=== PATIENT | female | born 1990 ===

== ENCOUNTER 2020-01-24 10:00 | Inpatient (IN) | payer BC ==
[2020-01-24] MEDS ORDERED: Citric Acid/Sodium Citrate Solution 30 ML Cup PO ONE (10:21)
[2020-01-24] MEDS ORDERED: Sodium Chloride 0.9% 10 ML SDV IV PRN (10:21)
[2020-01-24] MEDS ORDERED: ceFAZolin 2 GM in Premix Bag 1 BAG IV ONE (10:21)
[2020-01-24] MEDS ORDERED: Sodium Chloride 0.9% 2.5 ML Syringe FLUSH PRN ×2 (10:21→13:53)
[2020-01-24] MEDS ORDERED: Sodium Chloride 0.9% 10 ML Syringe FLUSH PRN ×2 (10:21→13:53)
--- NOTE | 2020-01-24 10:23 | PCM.PREANE ---
Preanesthetic Assessment - Anesthesia/Transfusion/Family Hx Anesthesia History: Prior Anesthesia Without Reaction Other Type of Anesthesia Reaction Comment: states is "sensitive to narcotics and anesthesia", severe N&V Family History of Anesthesia Reaction: No Transfusion History: No Prior Transfusion(s) Intubation History: Unknown - Review of Systems General: No Symptoms Pulmonary: No Symptoms Cardiovascular: No Symptoms Gastrointestinal: No Symptoms Neurological: No Symptoms Other: Reports: None - Physical Assessment Height: 5 ft 8 in Weight: 103.873 kg ASA Class: 2 Mental Status: Alert & Oriented x3 Airway Class: Mallampati = 2 Dentition: Reports: Normal Dentition, [place](s) (x6 upper front) Thyro-Mental Finger Breadths: 3 Mouth Opening Finger Breadths: 3 ROM/Head Extension: Full Lungs: Clear to Auscultation, Normal Respiratory Effort Cardiovascular: Regular Rate, Regular Rhythm - Allergies Allergies/Adverse Reactions: Allergies Allergy/AdvReac Type Severity Reaction Status Date / Time codeine Allergy Nausea and Verified 01/24/20 10:19 Vomiting doxycycline Allergy Nausea and Verified 01/24/20 10:19 Vomiting - Blood Blood Available: No - Anesthesia Plan Pre-Op Medication Ordered: None - Acknowledgements Anesthesia Type Planned: Spinal (general anesthesia back-up plan) Pt an Appropriate Candidate for the Planned Anesthesia: Yes Alternatives and Risks of Anesthesia Discussed w Pt/Guardian: Yes Pt/Guardian Understands and Agrees with Anesthesia Plan: Yes PreAnesthesia Questionnaire HEENT History: Reports: None Cardiovascular History: Reports: None Respiratory History: Reports: None Gastrointestinal History: Reports: None Genitourinary History: Reports: None TELEMARKETER History: Reports: , Spontaneous Musculoskeletal History: Reports: Fracture Other Musculoskeletal History: hx fx nose Neurological History: Reports: None Psychiatric History: Reports: None Endocrine/Metabolic History: Reports: None Hematologic History: Reports: None Immunologic History: Reports: None Oncologic (Cancer) History: Reports: None Dermatologic History: Reports: None - Past Surgical History Head Surgeries/Procedures: Reports: None HEENT Surgical History: Reports: Naso-Sinus Surgery, Other (See Below) Other HEENT Surgeries/Procedures: hx fx nose-surgery for deviated septum Cardiovascular Surgical History: Reports: None Respiratory Surgical History: Reports: None GI Surgical History: Reports: None Female Surgical History: Reports: Section, D&C, Other (See Below) Other Female Surgeries/Procedures: ureteral dilation as a child Endocrine Surgical History: Reports: None Neurological Surgical History: Reports: None Musculoskeletal Surgical History: Reports: Arthroscopic Knee, Other (See Below) Other Musculoskeletal Surgeries/Procedures:: rt knee ACL reconstruction x2, molly calf fasciotomy Oncologic Surgical History: Reports: None Dermatological Surgical History: Reports: None - SUBSTANCE USE Smoking Status *Q: Never Smoker Recreational Drug Use History: No - HOME MEDS Home Medications: Home Meds Cetirizine [ZyrTEC] 1 tab PO DAILY 01/20/20 [History] Pnv No.95/Ferrous Fum/Folic AC [ Vitamin Tablet] 1 tab PO DAILY 01/20/20 [History]
[2020-01-24] MEDS ORDERED: Oxytocin/0.9 % Sodium Chloride 30 UNIT/500 ML BAG IV SCH (10:30)
[2020-01-24] MEDS: Lactated Ringers 1,000 ML IV SCH ×4 (10:35→19:42)
[2020-01-24] MEDS ORDERED: Morphine PF 10 MG/10 ML SDV ONE (11:54)
[2020-01-24] MEDS ORDERED: Oxytocin 10 Units/1 ML SDV ONE (11:56)
[2020-01-24] MEDS ORDERED: Ondansetron 4 MG/2 ML SDV ONE (11:56)
[2020-01-24] MEDS ORDERED: Ketorolac 30 MG/ML SDV ONE (13:03)
[2020-01-24] MEDS ORDERED: ceFAZolin 1 GM Vial ONE (13:03)
[2020-01-24] MEDS ORDERED: diphenhydrAMINE 50 MG/ML SDV ONE (13:41)
[2020-01-24] MEDS ORDERED: Lanolin 100% Cream 7 GM Tube TOP PRN (13:53)
[2020-01-24] MEDS ORDERED: Acetaminophen/oxyCODONE 325-5 MG Tab PO PRN (13:53)
[2020-01-24] MEDS ORDERED: Methylergonovine 0.2 MG/1 ML Amp IM PRN (13:53)
[2020-01-24] MEDS ORDERED: diphenhydrAMINE 50 MG/ML SDV IVPUSH PRN ×2 (13:53→15:13)
[2020-01-24] MEDS ORDERED: Misoprostol 200 MCG Tab RECTAL PRN (13:53)
[2020-01-24] MEDS ORDERED: Bisacodyl 10 MG Supp RECTAL PRN (13:53)
[2020-01-24] MEDS ORDERED: Ondansetron 4 MG/2 ML SDV IVPUSH PRN ×2 (13:53→15:13)
[2020-01-24] MEDS ORDERED: Oxytocin 10 Units/1 ML SDV IM PRN (13:53)
[2020-01-24] MEDS ORDERED: Tranexamic Acid 1,000 MG in Sodium Chloride 0.9% 100 ML IV PRN (13:53)
--- NOTE | 2020-01-24 14:01 | PCM.OPNOTE ---
- General Post-Op/Procedure Note Date of Surgery/Procedure: 01/24/20 Operative Procedure(s): Repeat low transverse section Findings: Viable female infant, weight 3760 grams, 8 and 9 at 1 and 5 minutes respectively. Pre Op Diagnosis: [place] intrauterine at 39 weeks 1 day EGA, previous low transverse section Post-Op Diagnosis: Same Anesthesia Technique: Spinal Primary Surgeon: Vivek Basurto Preschool Disability Teacher: Shyla Moreno (MS4) EBL in mLs: 600 Complications: None known Condition: Stable
--- NOTE | 2020-01-24 15:12 | PCM.POSTAN ---
POST ANESTHESIA ASSESSMENT - MENTAL STATUS Mental Status: Alert, Oriented - RESPIRATORY Respiratory Status: Respiratory Rate WNL, Airway Patent, O2 Saturation Stable - CARDIOVASCULAR CV Status: Pulse Rate WNL, Blood Pressure Stable - GASTROINTESTINAL GI Status: No Symptoms - PAIN Pain Score: 0 - POST OP HYDRATION Hydration Status: Adequate & Stable - OBSERVATIONS Free Text/Narrative:: Patient complaint of itching which was relieved some with Benadryl. Patient at acceptable level now. Denies any other concerns. No anesthesia complications noted.
[2020-01-24] MEDS ORDERED: Nalbuphine 10 MG/1 ML Vial IVPUSH PRN (15:13)
[2020-01-24] MEDS ORDERED: fentaNYL 100 MCG/2 ML SDV IVPUSH PRN (15:13)
[2020-01-24] MEDS ORDERED: Naloxone 0.4 MG/ML Syringe IVPUSH PRN (15:13)
[2020-01-24] MEDS ORDERED: Promethazine 25 MG/ML SDV IM ONE (16:35)
[2020-01-24] MEDS ORDERED: Scopolamine 1.5 MG Transdermal Patch TRDERM PRN (16:51)
[2020-01-24] MEDS ORDERED: Scopolamine 1.5 MG Transdermal Patch TOP ONE (16:58)
--- NOTE | 2020-01-24 16:58 | PCM.SN.2 ---
- Free Text/Narrative Note: 1633: Called by BLANCA Mejía in OB. Patient is having severe nausea and vomiting. Zofran was given and has not helped. Ordered Phenergan 12.5 mg IM now and may repeat x1 in 20 minutes if not resolved. Additionally, patient has had a scopolamine patch before which she states has helped with nausea & motion sickness. Ordered scopolamine patch to be placed behind ear now. Patient in bed and miserably nauseated. Will follow up later this evening. VSS.
[2020-01-24] MEDS ORDERED: Scopolamine 1.5 MG Transdermal Patch TRDERM ONE (17:15)
[2020-01-24] MEDS: Ketorolac 30 MG/ML SDV IVPUSH SCH (19:38)
[2020-01-24] MEDS: Docusate Sodium 100 MG Cap PO SCH (20:51)
[2020-01-25] MEDS: Ketorolac 30 MG/ML SDV IVPUSH SCH ×3 (01:31→13:34)
--- NOTE | 2020-01-25 08:42 | PCM.PNPP ---
<Meredith Poole E - Last Filed: 01/25/20 08:36> - General Info Date of Service: 01/25/20 Admission Dx/Problem (Free Text): Elective repeat low transverse section at 39/1 weeks gestation. Functional Status: Reports: Pain Controlled - Review of Systems General: Reports: No Symptoms Genitourinary: Reports: No Symptoms Skin: Reports: No Symptoms Neurological: Reports: No Symptoms Psychiatric: Reports: No Symptoms - General Info Date of Service: 01/25/20 - Patient Data Vital Signs - Most Recent: Last Vital Signs Temp 36.8 C 01/25/20 04:00 Pulse 90 01/25/20 06:00 Resp 15 01/25/20 08:28 BP 144/81 H 01/25/20 07:35 Pulse Ox 97 01/25/20 08:28 Weight - Most Recent: 103.873 kg I&O - Last 24 Hours: Intake & Output 01/24/20 01/25/20 01/25/20 22:59 06:59 14:59 Intake Total 600 Output Total 375 650 400 Balance 225 -650 -400 Lab Results - Last 24 Hours: Laboratory Results - last 24 hr 01/24/20 01/24/20 01/24/20 Range/Units 10:35 10:35 14:08 WBC 11.53 H (4.0-11.0) K/uL RBC 4.16 L (4.30-5.90) M/uL Hgb 11.9 L (12.0-16.0) g/dL Hct 36.0 (36.0-46.0) % MCV 86.5 (80.0-98.0) fL MCH 28.6 (27.0-32.0) pg MCHC 33.1 (31.0-37.0) g/dL RDW Std Deviation 43.4 (28.0-62.0) fl RDW Coeff of Talha 14 (11.0-15.0) % Plt Count 161 (150-400) K/uL MPV 12.10 H (7.40-12.00) fL Nucleated RBC % 0.0 /100WBC Nucleated RBCs # 0 K/uL Blood Type O NEGATIVE Antibody Screen NEGATIVE Screen NEGATIVE (NEGATIVE) RhIG Candidate? YES Rhogam Indicated YES, BABY RH POS H 10/10/20 Range/Units 05:25 WBC (4.0-11.0) K/uL RBC (4.30-5.90) M/uL Hgb 11.6 L (12.0-16.0) g/dL Hct 35.7 L (36.0-46.0) % MCV (80.0-98.0) fL MCH (27.0-32.0) pg MCHC (31.0-37.0) g/dL RDW Std Deviation (28.0-62.0) fl RDW Coeff of Talha (11.0-15.0) % Plt Count (150-400) K/uL MPV (7.40-12.00) fL Nucleated RBC % /100WBC Nucleated RBCs # K/uL Blood Type Antibody Screen Screen (NEGATIVE) RhIG Candidate? Rhogam Indicated Med Orders - Current: Current Medications Bisacodyl (Dulcolax) 10 mg RECTAL ONETIME PRN PRN Reason: Constipation Diphenhydramine HCl (Benadryl) 25 mg IVPUSH Q6H PRN PRN Reason: Itching or Nausea Diphenhydramine HCl (Benadryl) 25 mg IVPUSH Q4H PRN PRN Reason: Itching Stop: 01/25/20 15:15 Docusate Sodium (Colace) 100 mg PO BID [facility] Last Admin: 01/24/20 20:51 Dose: 100 mg Documented by: Emollient Ointment (Lansinoh Hpa) 0 gm TOP ASDIRECTED PRN PRN Reason: Sore Nipples Fentanyl (Sublimaze) 50 mcg IVPUSH Q1H PRN PRN Reason: Pain (severe 7-10) Oxytocin/Sodium Chloride (Oxytocin 30 Unit/500 Ml-Ns) 30 unit in 500 mls @ 250 mls/hr IV TITRATE [facility] Lactated Ringer's (Ringers, Lactated) 1,000 mls @ 500 mls/hr IV BOLUS [facility] Last Admin: 01/24/20 11:16 Dose: 999 mls/hr Documented by: Lactated Ringer's (Ringers, Lactated) 1,000 mls @ 125 mls/hr IV ASDIRECTED [facility] Last Admin: 01/24/20 19:42 Dose: 125 mls/hr Documented by: Tranexamic Acid 1,000 mg/ (Sodium Chloride) 110 mls @ 660 mls/hr IV ONETIME PRN PRN Reason: Bleeding Ibuprofen (Motrin) 800 mg PO Q8H PRN PRN Reason: mild pain or fever Ketorolac Tromethamine (Toradol) 30 mg IVPUSH Q6H SHONNA Stop: 01/25/20 14:01 Last Admin: 01/25/20 07:23 Dose: 30 mg Documented by: Methylergonovine Maleate (Methergine) 0.2 mg IM ONETIME PRN PRN Reason: Excessive Vaginal Bleeding Misoprostol (Cytotec) 1,000 mcg RECTAL ONETIME PRN PRN Reason: excessive bleeding Nalbuphine HCl (Nubain) 5 mg IVPUSH ASDIRECTED PRN PRN Reason: Itching Naloxone HCl (Narcan) 0.1 mg IVPUSH ONETIME PRN PRN Reason: Respiratory Depression Stop: 01/25/20 15:15 Ondansetron HCl (Zofran) 4 mg IVPUSH Q4H PRN PRN Reason: Nausea/Vomiting Last Admin: 01/24/20 15:53 Dose: 4 mg Documented by: Ondansetron HCl (Zofran) 4 mg IVPUSH Q6H PRN PRN Reason: Nausea Oxycodone/Acetaminophen (Percocet 325-5 Mg) 1 tab PO Q4H PRN PRN Reason: Pain (moderate 4-6) Oxycodone/Acetaminophen (Percocet 325-5 Mg) 2 tab PO Q4H PRN PRN Reason: Pain (moderate 4-6) Oxytocin (Pitocin) 10 unit IM ASDIRECTED PRN PRN Reason: Excessive Vaginal Bleeding Sodium Chloride (Saline Flush) 10 ml FLUSH ASDIRECTED PRN PRN Reason: Keep Vein Open Sodium Chloride (Saline Flush) 2.5 ml FLUSH ASDIRECTED PRN PRN Reason: Keep Vein Open Sodium Chloride (Normal Saline) 10 ml IV ASDIRECTED PRN PRN Reason: IV Use Sodium Chloride (Saline Flush) 10 ml FLUSH ASDIRECTED PRN PRN Reason: Keep Vein Open Sodium Chloride (Saline Flush) 2.5 ml FLUSH ASDIRECTED PRN PRN Reason: Keep Vein Open Discontinued Medications Cefazolin Sodium (Ancef) Confirm Administered Dose 1 gm .ROUTE .STK-MED ONE Stop: 01/24/20 13:04 Citric Acid/Sodium Citrate (Bicitra Solution) 30 ml PO ONETIME ONE Stop: 01/24/20 10:22 Diphenhydramine HCl (Benadryl) Confirm Administered Dose 50 mg .ROUTE .STK-MED ONE Stop: 01/24/20 13:42 Cefazolin Sodium/Dextrose 2 gm (/ Premix) 50 mls @ 100 mls/hr IV ONETIME ONE Stop: 01/24/20 10:50 Cefazolin Sodium/Dextrose (Ancef) Confirm Administered Dose 50 mls @ as directed .ROUTE .STK-MED ONE Stop: 01/24/20 12:05 Ketorolac Tromethamine (Toradol) Confirm Administered Dose 30 mg .ROUTE .STK-MED ONE Stop: 01/24/20 13:04 Morphine Sulfate (Duramorph Pf) Confirm Administered Dose 10 mg .ROUTE .STK-MED ONE Stop: 01/24/20 11:55 Ondansetron HCl (Zofran) Confirm Administered Dose 4 mg .ROUTE .STK-MED ONE Stop: 01/24/20 11:57 Oxytocin (Pitocin) Confirm Administered Dose 30 unit .ROUTE .STK-MED ONE Stop: 01/24/20 11:57 Promethazine HCl (Phenergan) 25 mg IM ONETIME ONE Stop: 01/24/20 16:36 Last Admin: 01/24/20 16:46 Dose: 12.5 mg Documented by: Scopolamine (Transderm-Scop) 1.5 mg TRDERM Q72H ONE Stop: 01/24/20 17:16 Last Admin: 01/24/20 17:12 Dose: 1.5 mg Documented by: - Infant Interaction Disposition, : [place] in Room with Family Interaction: Holding Infant Infant Feeding: Bottle Fed Support Person: Significant Other - Recovery Exam Fundal Tone: Firm Fundal Level: 1 Fingerbreadths Below Umbilicus Fundal Placement: Midline Lochia Amount: Moderate Lochia Color: Rubra/Red Episiotomy/Laceration: Approximated Bladder Status: Voiding Urinary Elimination: Voided (Catheter removed and voided without difficulty.) - Exam General: Alert, No Acute Distress Lungs: Clear to Auscultation, Normal Respiratory Effort Cardiovascular: Regular Rate, Regular Rhythm GI/Abdominal Exam: Soft, Non-Tender. No: Guarding, Rigid Extremities: Normal Inspection, Normal Range of Motion, No Pedal Edema Skin: Warm, Dry Wound/Incisions: Dressing Dry and Intact Psy/Mental Status: Alert - Problem List Review Problem List Initiated/Reviewed/Updated: Yes - Assessment Assessment:: 29 y/o now day one after elective repeat low transverse at 39/1 weeks. - Plan Plan:: 1. Routine post- -O- blood, R immune, GBS negative 2. Rhogam today 3. Anticipate discharge tomorrow pending mother and status. <Sirisha Parkinson - Last Filed: 01/25/20 09:18> - Patient Data Vital Signs - Most Recent: Last Vital Signs Temp 37.1 C 01/25/20 08:53 Pulse 90 01/25/20 06:00 Resp 15 01/25/20 09:02 BP 144/81 H 01/25/20 07:35 Pulse Ox 96 01/25/20 09:02 I&O - Last 24 Hours: Intake & Output 01/24/20 01/25/20 01/25/20 22:59 06:59 14:59 Intake Total 600 Output Total 375 650 400 Balance 225 -650 -400 Lab Results - Last 24 Hours: Laboratory Results - last 24 hr 01/24/20 01/24/20 01/24/20 Range/Units 10:35 10:35 14:08 WBC 11.53 H (4.0-11.0) K/uL RBC 4.16 L (4.30-5.90) M/uL Hgb 11.9 L (12.0-16.0) g/dL Hct 36.0 (36.0-46.0) % MCV 86.5 (80.0-98.0) fL MCH 28.6 (27.0-32.0) pg MCHC 33.1 (31.0-37.0) g/dL RDW Std Deviation 43.4 (28.0-62.0) fl RDW Coeff of Talha 14 (11.0-15.0) % Plt Count 161 (150-400) K/uL MPV 12.10 H (7.40-12.00) fL Nucleated RBC % 0.0 /100WBC Nucleated RBCs # 0 K/uL Blood Type O NEGATIVE Antibody Screen NEGATIVE Screen NEGATIVE (NEGATIVE) RhIG Candidate? YES Rhogam Indicated YES, BABY RH POS H 01/25/20 Range/Units 05:25 WBC (4.0-11.0) K/uL RBC (4.30-5.90) M/uL Hgb 11.6 L (12.0-16.0) g/dL Hct 35.7 L (36.0-46.0) % MCV (80.0-98.0) fL MCH (27.0-32.0) pg MCHC (31.0-37.0) g/dL RDW Std Deviation (28.0-62.0) fl RDW Coeff of Talha (11.0-15.0) % Plt Count (150-400) K/uL MPV (7.40-12.00) fL Nucleated RBC % /100WBC Nucleated RBCs # K/uL Blood Type Antibody Screen Screen (NEGATIVE) RhIG Candidate? Rhogam Indicated Med Orders - Current: Current Medications Bisacodyl (Dulcolax) 10 mg RECTAL ONETIME PRN PRN Reason: Constipation Diphenhydramine HCl (Benadryl) 25 mg IVPUSH Q6H PRN PRN Reason: Itching or Nausea Diphenhydramine HCl (Benadryl) 25 mg IVPUSH Q4H PRN PRN Reason: Itching Stop: 01/25/20 15:15 Docusate Sodium (Colace) 100 mg PO BID [facility] Last Admin: 01/25/20 08:49 Dose: 100 mg Documented by: Emollient Ointment (Lansinoh Hpa) 0 gm TOP ASDIRECTED PRN PRN Reason: Sore Nipples Fentanyl (Sublimaze) 50 mcg IVPUSH Q1H PRN PRN Reason: Pain (severe 7-10) Oxytocin/Sodium Chloride (Oxytocin 30 Unit/500 Ml-Ns) 30 unit in 500 mls @ 250 mls/hr IV TITRATE [facility] Lactated Ringer's (Ringers, Lactated) 1,000 mls @ 500 mls/hr IV BOLUS [facility] Last Admin: 01/24/20 11:16 Dose: 999 mls/hr Documented by: Lactated Ringer's (Ringers, Lactated) 1,000 mls @ 125 mls/hr IV ASDIRECTED [facility] Last Admin: 10/09/20 19:42 Dose: 125 mls/hr Documented by: Tranexamic Acid 1,000 mg/ (Sodium Chloride) 110 mls @ 660 mls/hr IV ONETIME PRN PRN Reason: Bleeding Ibuprofen (Motrin) 800 mg PO Q8H PRN PRN Reason: mild pain or fever Ketorolac Tromethamine (Toradol) 30 mg IVPUSH Q6H SHONNA Stop: 01/25/20 14:01 Last Admin: 01/25/20 07:23 Dose: 30 mg Documented by: Methylergonovine Maleate (Methergine) 0.2 mg IM ONETIME PRN PRN Reason: Excessive Vaginal Bleeding Misoprostol (Cytotec) 1,000 mcg RECTAL ONETIME PRN PRN Reason: excessive bleeding Nalbuphine HCl (Nubain) 5 mg IVPUSH ASDIRECTED PRN PRN Reason: Itching Naloxone HCl (Narcan) 0.1 mg IVPUSH ONETIME PRN PRN Reason: Respiratory Depression Stop: 01/25/20 15:15 Ondansetron HCl (Zofran) 4 mg IVPUSH Q4H PRN PRN Reason: Nausea/Vomiting Last Admin: 01/24/20 15:53 Dose: 4 mg Documented by: Ondansetron HCl (Zofran) 4 mg IVPUSH Q6H PRN PRN Reason: Nausea Oxycodone/Acetaminophen (Percocet 325-5 Mg) 1 tab PO Q4H PRN PRN Reason: Pain (moderate 4-6) Oxycodone/Acetaminophen (Percocet 325-5 Mg) 2 tab PO Q4H PRN PRN Reason: Pain (moderate 4-6) Oxytocin (Pitocin) 10 unit IM ASDIRECTED PRN PRN Reason: Excessive Vaginal Bleeding Sodium Chloride (Saline Flush) 10 ml FLUSH ASDIRECTED PRN PRN Reason: Keep Vein Open Sodium Chloride (Saline Flush) 2.5 ml FLUSH ASDIRECTED PRN PRN Reason: Keep Vein Open Sodium Chloride (Normal Saline) 10 ml IV ASDIRECTED PRN PRN Reason: IV Use Sodium Chloride (Saline Flush) 10 ml FLUSH ASDIRECTED PRN PRN Reason: Keep Vein Open Sodium Chloride (Saline Flush) 2.5 ml FLUSH ASDIRECTED PRN PRN Reason: Keep Vein Open Discontinued Medications Cefazolin Sodium (Ancef) Confirm Administered Dose 1 gm .ROUTE .STK-MED ONE Stop: 01/24/20 13:04 Citric Acid/Sodium Citrate (Bicitra Solution) 30 ml PO ONETIME ONE Stop: 01/24/20 10:22 Diphenhydramine HCl (Benadryl) Confirm Administered Dose 50 mg .ROUTE .STK-MED ONE Stop: 01/24/20 13:42 Cefazolin Sodium/Dextrose 2 gm (/ Premix) 50 mls @ 100 mls/hr IV ONETIME ONE Stop: 01/24/20 10:50 Cefazolin Sodium/Dextrose (Ancef) Confirm Administered Dose 50 mls @ as directed .ROUTE .STK-MED ONE Stop: 01/24/20 12:05 Ketorolac Tromethamine (Toradol) Confirm Administered Dose 30 mg .ROUTE .STK-MED ONE Stop: 01/24/20 13:04 Morphine Sulfate (Duramorph Pf) Confirm Administered Dose 10 mg .ROUTE .STK-MED ONE Stop: 01/24/20 11:55 Ondansetron HCl (Zofran) Confirm Administered Dose 4 mg .ROUTE .STK-MED ONE Stop: 01/24/20 11:57 Oxytocin (Pitocin) Confirm Administered Dose 30 unit .ROUTE .STK-MED ONE Stop: 01/24/20 11:57 Promethazine HCl (Phenergan) 25 mg IM ONETIME ONE Stop: 01/24/20 16:36 Last Admin: 01/24/20 16:46 Dose: 12.5 mg Documented by: Scopolamine (Transderm-Scop) 1.5 mg TRDERM Q72H ONE Stop: 01/24/20 17:16 Last Admin: 01/24/20 17:12 Dose: 1.5 mg Documented by: - Problem List Review Problem List Initiated/Reviewed/Updated: Yes - Assessment Assessment:: Patient was seen and examined by me and I agree with above.
[2020-01-25] MEDS: Docusate Sodium 100 MG Cap PO SCH ×2 (08:49→20:56)
--- NOTE | 2020-01-25 11:00 | PCM48HPAN ---
Post Anesthesia Note - EVALUATION WITHIN 48HRS OF ANESTHETIC Vital Signs in Normal Range: Yes Patient Participated in Evaluation: Yes Respiratory Function Stable: Yes Airway Patent: Yes Cardiovascular Function Stable: Yes Hydration Status Stable: Yes Pain Control Satisfactory: Yes Nausea and Vomiting Control Satisfactory: Yes Mental Status Recovered: Yes Vital Signs: Last Vital Signs Temp 37.1 C 01/25/20 08:53 Pulse 90 01/25/20 06:00 Resp 15 01/25/20 10:42 BP 144/81 H 01/25/20 07:35 Pulse Ox 96 01/25/20 10:42 - COMMENTS/OBSERVATIONS Free Text/Narrative:: Patient sitting in bed hold baby. Doing very well today. No nausea and vomiting and IM phenergan and scope patch application yesterday evening. She has been able to eat and drink and move around. No further anesthesia complications or concerns noted.
[2020-01-25] MEDS: Acetaminophen/oxyCODONE 325-5 MG Tab PO PRN ×2 (16:18→21:37)
[2020-01-25] MEDS: Ibuprofen 800 MG Tab PO PRN (19:36)
[2020-01-26] MEDS: Acetaminophen/oxyCODONE 325-5 MG Tab PO PRN ×3 (01:38→12:33)
[2020-01-26] MEDS: Ibuprofen 800 MG Tab PO PRN ×2 (03:59→12:33)
--- NOTE | 2020-01-26 08:52 | PCM.PNPP ---
<Meredith Poole E - Last Filed: 01/26/20 08:47> - General Info Date of Service: 01/26/20 Admission Dx/Problem (Free Text): Elective repeat low transverse section at 39/1 weeks gestation. Subjective Update: Patient is a 29 y/o female who is on day 2 from a repeat low transverse section. She had no overnight events and is doing well. She is eating and voiding well. She is bottle feeding. She has no questions or concerns at this time. Functional Status: Reports: Pain Controlled, Tolerating Diet, Ambulating, Urinating - Review of Systems General: Reports: No Symptoms Pulmonary: Denies: Shortness of Breath Skin: Reports: No Symptoms Neurological: Reports: No Symptoms - General Info Date of Service: 01/26/20 - Patient Data Vital Signs - Most Recent: Last Vital Signs Temp 36.7 C 01/26/20 07:27 Pulse 92 01/26/20 04:00 Resp 14 01/26/20 07:27 BP 131/82 01/26/20 07:27 Pulse Ox 96 01/26/20 07:27 Weight - Most Recent: 103.873 kg I&O - Last 24 Hours: Intake & Output 01/25/20 01/26/20 01/26/20 22:59 06:59 14:59 Intake Total 2 Balance 2 Lab Results - Last 24 Hours: Laboratory Results - last 24 hr 01/24/20 Range/Units 14:08 Screen NEGATIVE (NEGATIVE) RhIG Candidate? YES Rhogam Indicated YES, BABY RH POS H Med Orders - Current: Current Medications Bisacodyl (Dulcolax) 10 mg RECTAL ONETIME PRN PRN Reason: Constipation Diphenhydramine HCl (Benadryl) 25 mg IVPUSH Q6H PRN PRN Reason: Itching or Nausea Docusate Sodium (Colace) 100 mg PO BID [facility] Last Admin: 01/25/20 20:56 Dose: 100 mg Documented by: Emollient Ointment (Lansinoh Hpa) 0 gm TOP ASDIRECTED PRN PRN Reason: Sore Nipples Fentanyl (Sublimaze) 50 mcg IVPUSH Q1H PRN PRN Reason: Pain (severe 7-10) Oxytocin/Sodium Chloride (Oxytocin 30 Unit/500 Ml-Ns) 30 unit in 500 mls @ 250 mls/hr IV TITRATE [facility] Lactated Ringer's (Ringers, Lactated) 1,000 mls @ 500 mls/hr IV BOLUS [facility] Last Admin: 01/24/20 11:16 Dose: 999 mls/hr Documented by: Lactated Ringer's (Ringers, Lactated) 1,000 mls @ 125 mls/hr IV ASDIRECTED SHONNA Last Admin: 01/24/20 19:42 Dose: 125 mls/hr Documented by: Tranexamic Acid 1,000 mg/ (Sodium Chloride) 110 mls @ 660 mls/hr IV ONETIME PRN PRN Reason: Bleeding Ibuprofen (Motrin) 800 mg PO Q8H PRN PRN Reason: mild pain or fever Last Admin: 01/26/20 03:59 Dose: 800 mg Documented by: Methylergonovine Maleate (Methergine) 0.2 mg IM ONETIME PRN PRN Reason: Excessive Vaginal Bleeding Misoprostol (Cytotec) 1,000 mcg RECTAL ONETIME PRN PRN Reason: excessive bleeding Nalbuphine HCl (Nubain) 5 mg IVPUSH ASDIRECTED PRN PRN Reason: Itching Ondansetron HCl (Zofran) 4 mg IVPUSH Q4H PRN PRN Reason: Nausea/Vomiting Last Admin: 01/24/20 15:53 Dose: 4 mg Documented by: Ondansetron HCl (Zofran) 4 mg IVPUSH Q6H PRN PRN Reason: Nausea Oxycodone/Acetaminophen (Percocet 325-5 Mg) 1 tab PO Q4H PRN PRN Reason: Pain (moderate 4-6) Last Admin: 01/26/20 07:16 Dose: 1 tab Documented by: Oxycodone/Acetaminophen (Percocet 325-5 Mg) 2 tab PO Q4H PRN PRN Reason: Pain (moderate 4-6) Oxytocin (Pitocin) 10 unit IM ASDIRECTED PRN PRN Reason: Excessive Vaginal Bleeding Sodium Chloride (Saline Flush) 10 ml FLUSH ASDIRECTED PRN PRN Reason: Keep Vein Open Sodium Chloride (Saline Flush) 2.5 ml FLUSH ASDIRECTED PRN PRN Reason: Keep Vein Open Sodium Chloride (Normal Saline) 10 ml IV ASDIRECTED PRN PRN Reason: IV Use Sodium Chloride (Saline Flush) 10 ml FLUSH ASDIRECTED PRN PRN Reason: Keep Vein Open Sodium Chloride (Saline Flush) 2.5 ml FLUSH ASDIRECTED PRN PRN Reason: Keep Vein Open Discontinued Medications Cefazolin Sodium (Ancef) Confirm Administered Dose 1 gm .ROUTE .STK-MED ONE Stop: 01/24/20 13:04 Citric Acid/Sodium Citrate (Bicitra Solution) 30 ml PO ONETIME ONE Stop: 01/24/20 10:22 Diphenhydramine HCl (Benadryl) Confirm Administered Dose 50 mg .ROUTE .STK-MED ONE Stop: 01/24/20 13:42 Diphenhydramine HCl (Benadryl) 25 mg IVPUSH Q4H PRN PRN Reason: Itching Stop: 01/25/20 15:15 Cefazolin Sodium/Dextrose 2 gm (/ Premix) 50 mls @ 100 mls/hr IV ONETIME ONE Stop: 01/24/20 10:50 Cefazolin Sodium/Dextrose (Ancef) Confirm Administered Dose 50 mls @ as directed .ROUTE .STK-MED ONE Stop: 01/24/20 12:05 Ketorolac Tromethamine (Toradol) Confirm Administered Dose 30 mg .ROUTE .STK-MED ONE Stop: 01/24/20 13:04 Ketorolac Tromethamine (Toradol) 30 mg IVPUSH Q6H SHON[facility] Stop: 01/25/20 14:01 Last Admin: 01/25/20 13:34 Dose: 30 mg Documented by: Morphine Sulfate (Duramorph Pf) Confirm Administered Dose 10 mg .ROUTE .STK-MED ONE Stop: 01/24/20 11:55 Naloxone HCl (Narcan) 0.1 mg IVPUSH ONETIME PRN PRN Reason: Respiratory Depression Stop: 01/25/20 15:15 Ondansetron HCl (Zofran) Confirm Administered Dose 4 mg .ROUTE .STK-MED ONE Stop: 01/24/20 11:57 Oxytocin (Pitocin) Confirm Administered Dose 30 unit .ROUTE .STK-MED ONE Stop: 01/24/20 11:57 Promethazine HCl (Phenergan) 25 mg IM ONETIME ONE Stop: 01/24/20 16:36 Last Admin: 01/24/20 16:46 Dose: 12.5 mg Documented by: Scopolamine (Transderm-Scop) 1.5 mg TRDERM Q72H ONE Stop: 01/24/20 17:16 Last Admin: 01/24/20 17:12 Dose: 1.5 mg Documented by: - Infant Interaction Disposition, : in Room with Family Interaction: Holding Infant Feeding: Bottle Fed Support Person: Significant Other - Recovery Exam Fundal Tone: Firm Fundal Level: 2 Fingerbreadths Below Umbilicus Fundal Placement: Midline Lochia Amount: Scant Lochia Color: Rubra/Red Perineum Description: Intact, Minimal Bruising/Swelling Episiotomy/Laceration: Approximated Bladder Status: Voiding Urinary Elimination: Voided - Exam General: Alert, No Acute Distress Lungs: Clear to Auscultation, Normal Respiratory Effort Cardiovascular: Regular Rate, Regular Rhythm GI/Abdominal Exam: Soft, Non-Tender. No: Guarding, Rigid Extremities: Normal Inspection, Normal Range of Motion, Non-Tender, No Pedal Edema Skin: Warm, Dry Wound/Incisions: Healing Well, No Drainage. No: Erythema Neurological: No New Focal Deficit Psy/Mental Status: Alert, Normal Mood - Problem List Review Problem List Initiated/Reviewed/Updated: Yes - Assessment Assessment:: Patient is a 29 y/o now female on post- day two after an elective repeat low transverse section. - Plan Plan:: 1. Routine post- -O- blood, R immune, GBS negative 2. Rhogam given 3. Anticipate discharge today pending mother and status. <Sirisha Parkinson - Last Filed: 01/26/20 09:45> - Patient Data Vital Signs - Most Recent: Last Vital Signs Temp 36.7 C 01/26/20 07:27 Pulse 92 01/26/20 04:00 Resp 14 01/26/20 07:27 BP 131/82 01/26/20 07:27 Pulse Ox 96 01/26/20 07:27 I&O - Last 24 Hours: Intake & Output 01/25/20 01/26/20 01/26/20 22:59 06:59 14:59 Intake Total 2 Balance 2 Lab Results - Last 24 Hours: Laboratory Results - last 24 hr 01/24/20 Range/Units 14:08 Screen NEGATIVE (NEGATIVE) RhIG Candidate? YES Rhogam Indicated YES, BABY RH POS H Med Orders - Current: Current Medications Bisacodyl (Dulcolax) 10 mg RECTAL ONETIME PRN PRN Reason: Constipation Diphenhydramine HCl (Benadryl) 25 mg IVPUSH Q6H PRN PRN Reason: Itching or Nausea Docusate Sodium (Colace) 100 mg PO BID [facility] Last Admin: 01/26/20 08:53 Dose: 100 mg Documented by: Emollient Ointment (Lansinoh Hpa) 0 gm TOP ASDIRECTED PRN PRN Reason: Sore Nipples Fentanyl (Sublimaze) 50 mcg IVPUSH Q1H PRN PRN Reason: Pain (severe 7-10) Oxytocin/Sodium Chloride (Oxytocin 30 Unit/500 Ml-Ns) 30 unit in 500 mls @ 250 mls/hr IV TITRATE [facility] Lactated Ringer's (Ringers, Lactated) 1,000 mls @ 500 mls/hr IV BOLUS [facility] Last Admin: 01/24/20 11:16 Dose: 999 mls/hr Documented by: Lactated Ringer's (Ringers, Lactated) 1,000 mls @ 125 mls/hr IV ASDIRECTED [facility] Last Admin: 01/24/20 19:42 Dose: 125 mls/hr Documented by: Tranexamic Acid 1,000 mg/ (Sodium Chloride) 110 mls @ 660 mls/hr IV ONETIME PRN PRN Reason: Bleeding Ibuprofen (Motrin) 800 mg PO Q8H PRN PRN Reason: mild pain or fever Last Admin: 01/26/20 03:59 Dose: 800 mg Documented by: Methylergonovine Maleate (Methergine) 0.2 mg IM ONETIME PRN PRN Reason: Excessive Vaginal Bleeding Misoprostol (Cytotec) 1,000 mcg RECTAL ONETIME PRN PRN Reason: excessive bleeding Nalbuphine HCl (Nubain) 5 mg IVPUSH ASDIRECTED PRN PRN Reason: Itching Ondansetron HCl (Zofran) 4 mg IVPUSH Q4H PRN PRN Reason: Nausea/Vomiting Last Admin: 01/24/20 15:53 Dose: 4 mg Documented by: Ondansetron HCl (Zofran) 4 mg IVPUSH Q6H PRN PRN Reason: Nausea Oxycodone/Acetaminophen (Percocet 325-5 Mg) 1 tab PO Q4H PRN PRN Reason: Pain (moderate 4-6) Last Admin: 01/26/20 07:16 Dose: 1 tab Documented by: Oxycodone/Acetaminophen (Percocet 325-5 Mg) 2 tab PO Q4H PRN PRN Reason: Pain (moderate 4-6) Oxytocin (Pitocin) 10 unit IM ASDIRECTED PRN PRN Reason: Excessive Vaginal Bleeding Sodium Chloride (Saline Flush) 10 ml FLUSH ASDIRECTED PRN PRN Reason: Keep Vein Open Sodium Chloride (Saline Flush) 2.5 ml FLUSH ASDIRECTED PRN PRN Reason: Keep Vein Open Sodium Chloride (Normal Saline) 10 ml IV ASDIRECTED PRN PRN Reason: IV Use Sodium Chloride (Saline Flush) 10 ml FLUSH ASDIRECTED PRN PRN Reason: Keep Vein Open Sodium Chloride (Saline Flush) 2.5 ml FLUSH ASDIRECTED PRN PRN Reason: Keep Vein Open Discontinued Medications Cefazolin Sodium (Ancef) Confirm Administered Dose 1 gm .ROUTE .STK-MED ONE Stop: 01/24/20 13:04 Citric Acid/Sodium Citrate (Bicitra Solution) 30 ml PO ONETIME ONE Stop: 01/24/20 10:22 Diphenhydramine HCl (Benadryl) Confirm Administered Dose 50 mg .ROUTE .STK-MED ONE Stop: 01/24/20 13:42 Diphenhydramine HCl (Benadryl) 25 mg IVPUSH Q4H PRN PRN Reason: Itching Stop: 01/25/20 15:15 Cefazolin Sodium/Dextrose 2 gm (/ Premix) 50 mls @ 100 mls/hr IV ONETIME ONE Stop: 01/24/20 10:50 Cefazolin Sodium/Dextrose (Ancef) Confirm Administered Dose 50 mls @ as directed .ROUTE .STK-MED ONE Stop: 01/24/20 12:05 Ketorolac Tromethamine (Toradol) Confirm Administered Dose 30 mg .ROUTE .STK-MED ONE Stop: 01/24/20 13:04 Ketorolac Tromethamine (Toradol) 30 mg IVPUSH Q6H SHONNA Stop: 01/25/20 14:01 Last Admin: 01/25/20 13:34 Dose: 30 mg Documented by: Morphine Sulfate (Duramorph Pf) Confirm Administered Dose 10 mg .ROUTE .STK-MED ONE Stop: 01/24/20 11:55 Naloxone HCl (Narcan) 0.1 mg IVPUSH ONETIME PRN PRN Reason: Respiratory Depression Stop: 01/25/20 15:15 Ondansetron HCl (Zofran) Confirm Administered Dose 4 mg .ROUTE .STK-MED ONE Stop: 01/24/20 11:57 Oxytocin (Pitocin) Confirm Administered Dose 30 unit .ROUTE .STK-MED ONE Stop: 01/24/20 11:57 Promethazine HCl (Phenergan) 25 mg IM ONETIME ONE Stop: 01/24/20 16:36 Last Admin: 01/24/20 16:46 Dose: 12.5 mg Documented by: Scopolamine (Transderm-Scop) 1.5 mg TRDERM Q72H ONE Stop: 01/24/20 17:16 Last Admin: 01/24/20 17:12 Dose: 1.5 mg Documented by: - Problem List & Annotations (1) delivery delivered SNOMED Code(s): 154790846 Code(s): O82 - ENCOUNTER FOR DELIVERY WITHOUT INDICATION Status: Acute Current Visit: Yes (2) Previous delivery affecting , delivered SNOMED Code(s): 970556914, 667802987 Code(s): O34.219 - MATERNAL CARE FOR UNSP TYPE SCAR FROM PREVIOUS DEL Status: Acute Current Visit: Yes - Problem List Review Problem List Initiated/Reviewed/Updated: Yes - Assessment Assessment:: Patient was seen and examined by me and I agree with above. Discharge instruction reviewed.
[2020-01-26] MEDS: Docusate Sodium 100 MG Cap PO SCH (08:53)
--- NOTE | 2020-01-28 12:12 | OR ---
SURGEON: Vivek Basurto MD DATE OF PROCEDURE: 01/24/2020 INDICATION FOR PROCEDURE: A 29-year-old, G2, P 1-0-0-1, at 39 weeks and 1 day, presenting for a scheduled repeat section. She has history of PCOS and infertility, she successfully conceived with letrozole ovulation induction for this . She has a history of one previous due to failure to progress in labor and declines trial of labor after . She had otherwise uncomplicated and is GBS negative. PREOPERATIVE DIAGNOSES: 1. Navarrete intrauterine at 39 weeks and 1 day. 2. Previous section. POSTOPERATIVE DIAGNOSES: 1. Navarrete intrauterine at 39 weeks and 1 day. 2. Previous section. PROCEDURE PERFORMED: Repeat low transverse section. HUMAN GEOGRAPHY INSTRUCTOR: Chiara Moreno MS4 ANESTHESIA: Spinal. ANESTHESIOLOGIST: Dr. Roshni Delgado. FINDINGS: Viable female infant. score of 8 and 9. Weight of 3790g. Normal- appearing uterus, fallopian tubes, and ovaries. ESTIMATED BLOOD LOSS: 600 mL. DESCRIPTION OF PROCEDURE: The procedure was discussed with the patient. Risks and complications including bleeding; infection; DVTs; injuries to surrounding organs including ureter, bladder, and bowel. The patient expressed understanding. Questions answered and consent signed. The patient was brought to the operating room. She received 2 g Ancef IV and pneumatic stockings. Spinal anesthesia was placed. Banerjee catheter was placed. The abdomen was prepped with chlorhexidine in sterile fashion and draped and tested for anesthesia. The spinal was found to be adequate. A Pfannenstiel incision was made with a scalpel and dissected down to fascia. Multiple sites of bleeding were noted and cauterized. The fascia was cleared of subcutaneous tissue. The fascia was incised in the midline and extended laterally with curved Muller scissors. The Jayy clamp was placed on the superior fascial edge. The rectus muscle was carefully by blunt dissection using Muller scissors. The same process was repeated for the inferior fascial edge. The rectus muscle was adhesed in the midline and was carefully with Metzenbaum scissors and the peritoneum was then visualized and again carefully dissected. The opening was then extended bluntly. The Yahir O retractor was placed in the peritoneal cavity. The bladder peritoneum was noted to be adhered to the lower uterine segment, it was gently dissected away from the operative site. The uterus was then incised transversely at the lower uterine segment using scalpel and extended bluntly. Clear amniotic fluid was noted, and the infant's head was delivered atraumatically by elevating the head through the hysterotomy and with fundal pressure. The shoulder and body were delivered without difficulty. Nuchal x1 and body cord was noted and reduced after delivery. The baby was pink, vigorous, and moving all extremities after delivery. The umbilical cord was clamped and cut after 60 seconds and no longer pulsating, and the baby was handed over to nursery staff. Cord gases were obtained. The placenta was delivered with gentle traction on the umbilical cord. A clean lap was used to remove any remaining membranes from the uterine cavity. Allis clamps were used to grasp the angles and lower edges of the incision. The uterine incision was closed in two layers, the first layer with a running locking suture using 0 Monocryl, the second layer in imbricated vertical running fashion with 0 Vicryl. The uterus was firm. The paracolic gutters were cleared of any clots. The ovaries and fallopian tubes were examined and found to be normal appearing. The incision was checked for hemostasis. Copious amount of sterile water was used to irrigate the incision. The peritoneum was grasped by Salome clamps and closed using 2-0 Vicryl in a running fashion. The rectus muscles were examined and found to be hemostatic. The fascia was closed using two 0 Vicryl sutures in running fashion. The subcutaneous tissue was irrigated and bleeding area was cauterized. The subcutaneous layer was brought together with 2-0 plain. The skin layer was closed in subcuticular fashion using 3-0 Vicryl on a Andreas needle. Telfa and ABD dressing was placed over the incision. The patient was stable and transferred to recovery room. EULALIO ROGER /[id number] MARY BETH
--- NOTE | 2020-01-28 17:25 | OR ---
SURGEON: Vivek Basurto MD DATE OF PROCEDURE: 01/24/2020 INDICATION FOR PROCEDURE: A 29-year-old G2, P1-0-0-1 at 39 weeks and 1 day, presenting for a scheduled repeat section. The patient has a history of PCOS and infertility and was conceived with letrozole ovulation induction. She has one previous C- section due to failure to progress and declined trial of labor after and desires repeat . She had, otherwise, uncomplicated and is GBS negative. PREOPERATIVE DIAGNOSES: 1. Navarrete intrauterine at 39 weeks and 1 day. 2. Previous section. POSTOPERATIVE DIAGNOSES: 1. Navarrete intrauterine at 39 weeks and 1 day. 2. Previous section. PROCEDURE PERFORMED: Repeat low-transverse section. PRIMARY SURGEON: Dr. Vivek Basurto. FINDINGS: Viable female , scores of 8 and 9, weight of 3790. ESTIMATED BLOOD LOSS: 600 mL. ANESTHESIA: Spinal. ANESTHESIOLOGIST: Dr. Roshni Delgado. DESCRIPTION OF PROCEDURE: The procedure was discussed with the patient. Risks and complications including bleeding, infection, injury to surrounding organs including ureter, bladder, or bowel. The patient expresses understanding. Questions were answered and consent signed. The patient was brought to the operating room. She received 2 g of Ancef IV for prophylaxis and pneumatic stockings. Spinal anesthesia was placed. A Banerjee catheter was also placed. The abdomen was prepped with chlorhexidine in sterile fashion and draped and tested for anesthesia. Spinal was adequate. A Pfannenstiel incision was made with a scalpel at the site of the previous incision and dissected down to fascia. Multiple sites were bleeding and cauterized. The fascia was cleared of subcutaneous tissue. The fascia was incised in the midline and extended laterally with curved Muller scissors. Jayy clamps were placed on the superior fascial edge and the rectus muscle was by blunt dissection and using Muller scissors. The same process was repeated for the inferior fascial edge. The rectus muscle was tightly closed in the midline due to previous surgery, it was carefully dissected apart until peritoneum was noted. The peritoneum was then gently dissected with Metzenbaum scissors and then extended bluntly. The Yahir O retractor was placed in the normal cavity for retraction. The bladder peritoneum was noted to be adhesed to the lower uterine segment. It was carefully dissected away from the lower uterine segment with Metzenbaum scissors. The uterus was then incised using the scalpel transversely and extended bluntly. Clear amniotic fluid was noted. The 's head was delivered atraumatically by elevating the head through the hysterotomy and with fundal pressure. The shoulder and body delivered easily. There was a nuchal and a body cord that was reduced after delivery. The baby was pink and crying and moving all extremities after delivery. The umbilical cord was clamped and cut after 60 seconds and no longer pulsating. The baby was handed over to awaiting nursery staff. Cord gases were obtained. Placenta was delivered with gentle traction on the umbilical cord. A clean lap was used to remove all remaining membranes in the uterus. Allis clamps were used to grasp the angles and lower edges of the incision. The uterine incision was closed in 2 layers; the first layer with a running locking suture using 0 Monocryl, the second layer was closed with imbricating running fashion with 0 Vicryl. The incision was hemostatic. The paracolic gutters were cleared of any clots. The tubes and ovaries were examined and appeared to be normal bilaterally. The incision was again checked for hemostasis. The peritoneum was then grasped by Portales clamps and closed using 2-0 Vicryl in a running fashion. The rectus muscles were examined and noted to be hemostatic. The fascia was closed using 2-0 Vicryl sutures in running fashion. The subcutaneous tissue was irrigated and bleeding areas cauterized. The subcutaneous layer was brought together with 2-0 plain in a running fashion. The skin was closed in subcuticular fashion using 3- 0 Monocryl on a Andreas needle. The patient's belly was cleaned, and Telfa and ABD dressing was placed over the incision. The patient was stable and transferred to recovery room. EULALIO ROGER /[id number]
== END 2020-01-26 12:57 | disposition home or self-care (01) | DRG 540 ==
LOC: MW.OB 10:00 → OBSVTOIN 10:00 → MW.OB 19:47
PROVIDERS: ADMIT Obstetrics & Gynecology; ATTEND Obstetrics & Gynecology
PROC: 10D00Z1 Extraction of Products of Conception, Low, Open Approach (ICD-10-PCS; principal; 2020-01-24)
PROC: 3E0234Z Introduction of Serum, Toxoid and Vaccine into Muscle, Percutaneous Approach (ICD-10-PCS; 2020-01-25)
DX: O34.211 Maternal care for low transverse scar from previous cesarean delivery (principal); Z37.0 Single live birth; Z3A.39 39 weeks gestation of pregnancy; O26.893 Other specified pregnancy related conditions, third trimester; Z67.41 Type O blood, Rh negative
CPT/HCPCS: 36415; 36430; 59025; 85014; 85018; 85027; 85460; 86592; 86850; 86900; 86901; A9270-GY; J0690; J1200; J1885; J2270; J2405; J2550; J2590; J2792; J7120

== ENCOUNTER 2020-01-29 15:18 | Observation (INO) | payer BC ==
[2020-01-29] MEDS ORDERED: Sodium Chloride 0.9% 2.5 ML Syringe FLUSH PRN (15:41)
[2020-01-29] MEDS ORDERED: Magnesium Sulfate/Water 4 GM in Premix Bag 1 BAG IV ONE (15:41)
[2020-01-29] MEDS ORDERED: Calcium Gluconate 10% 1 GM/10 ML SDV IV PRN (15:41)
[2020-01-29] MEDS ORDERED: Sodium Chloride 0.9% 10 ML Syringe FLUSH PRN (15:41)
[2020-01-29] MEDS ORDERED: Sodium Chloride 0.9% 10 ML SDV IV PRN (15:41)
[2020-01-29] MEDS ORDERED: Labetalol 100 MG/20 ML MDV IVPUSH PRN (15:41)
[2020-01-29] MEDS ORDERED: Sodium Chloride 0.9% 1,000 ML IV SCH (17:30)
[2020-01-29] MEDS ORDERED: Labetalol 100 MG/20 ML MDV IVPUSH ONE ×2 (17:46→23:08)
[2020-01-29] MEDS: Magnesium Sulfate/Water 20 GM/500 ML BAG IV SCH (17:52)
[2020-01-29] MEDS ORDERED: Labetalol 100 MG Tab PO SCH (21:00)
[2020-01-29] MEDS: Acetaminophen 325 MG Tab PO PRN (23:21)
[2020-01-30] MEDS: Magnesium Sulfate/Water 20 GM/500 ML BAG IV SCH ×2 (03:35→13:39)
[2020-01-30 04:28] LABS: BLOOD UREA NITROGEN,BUN 8 mg/dL (7.0-18.0); CARBON DIOXIDE,CO2 26.7 mmol/L (21.0-32.0); CHLORIDE,CL 104 mmol/L (98-107); GLUCOSE RANDOM 92 mg/dL (74-106); POTASSIUM,K 3.6 mmol/L (3.5-5.1); SODIUM,NA 140 mmol/L (136-145)
[2020-01-30] MEDS: Acetaminophen 325 MG Tab PO PRN ×3 (05:30→20:45)
[2020-01-30] MEDS ORDERED: Labetalol 100 MG Tab PO ONE (05:55)
--- NOTE | 2020-01-30 08:30 | PCM.PN ---
- General Info Date of Service: 01/30/20 Subjective Update: Patient had headache overnight, is less than intense than headaches she had at home. Taken some tylenol with partial relief. Urine output of 3000cc for 12 hours. Denies any more spots in her vision. Otherwise feeling well. BP has been 140s/80s with labetalol 300mg BID. - Review of Systems General: Reports: No Symptoms HEENT: Reports: Headaches Pulmonary: Reports: No Symptoms Cardiovascular: Reports: No Symptoms Gastrointestinal: Reports: No Symptoms Genitourinary: Reports: No Symptoms Musculoskeletal: Reports: No Symptoms Skin: Reports: No Symptoms Neurological: Reports: No Symptoms Psychiatric: Reports: No Symptoms - Patient Data Vitals - Most Recent: Last Vital Signs Temp 36.8 C 01/30/20 07:35 Pulse 100 01/30/20 07:35 Resp 15 01/30/20 07:35 BP 144/88 H 01/30/20 07:35 Pulse Ox 96 01/30/20 07:35 Weight - Most Recent: 215 lb 4.8 oz I&O - Last 24 Hours: Intake & Output 01/29/20 01/30/20 01/30/20 22:59 06:59 14:59 Output Total 1800 1450 Balance -1800 -1450 Lab Results Last 24 Hours: Laboratory Results - last 24 hr 01/29/20 01/29/20 01/30/20 Range/Units 15:23 22:08 03:56 WBC 8.92 (4.0-11.0) K/uL RBC 4.02 L (4.30-5.90) M/uL Hgb 11.4 L (12.0-16.0) g/dL Hct 35.5 L (36.0-46.0) % MCV 88.3 (80.0-98.0) fL MCH 28.4 (27.0-32.0) pg MCHC 32.1 (31.0-37.0) g/dL RDW Std Deviation 44.3 (28.0-62.0) fl RDW Coeff of Talha 14 (11.0-15.0) % Plt Count 224 (150-400) K/uL MPV 11.20 (7.40-12.00) fL Nucleated RBC % 0.0 /100WBC Nucleated RBCs # 0 K/uL Sodium (136-145) mmol/L Potassium (3.5-5.1) mmol/L Chloride (98-107) mmol/L Carbon Dioxide (21.0-32.0) mmol/L BUN (7.0-18.0) mg/dL Creatinine (0.6-1.0) mg/dL Est Cr Clr Drug Dosing mL/min Estimated GFR (MDRD) ml/min Glucose (74-106) mg/dL Uric Acid (2.6-7.2) mg/dL Calcium (8.5-10.1) mg/dL Magnesium 4.2 H (1.8-2.4) mg/dL Total Bilirubin (0.2-1.0) mg/dL AST (15-37) IU/L ALT (14-63) IU/L Alkaline Phosphatase (46-116) U/L Total Protein (6.4-8.2) g/dL Albumin (3.4-5.0) g/dL Globulin (2.6-4.0) g/dL Albumin/Globulin Ratio (0.9-1.6) SARS-CoV-2 RNA (BERNARDO) NEGATIVE (NEGATIVE) 01/30/20 01/30/20 Range/Units 03:56 03:56 WBC (4.0-11.0) K/uL RBC (4.30-5.90) M/uL Hgb (12.0-16.0) g/dL Hct (36.0-46.0) % MCV (80.0-98.0) fL MCH (27.0-32.0) pg MCHC (31.0-37.0) g/dL RDW Std Deviation (28.0-62.0) fl RDW Coeff of Talha (11.0-15.0) % Plt Count (150-400) K/uL MPV (7.40-12.00) fL Nucleated RBC % /100WBC Nucleated RBCs # K/uL Sodium 140 (136-145) mmol/L Potassium 3.6 (3.5-5.1) mmol/L Chloride 104 (98-107) mmol/L Carbon Dioxide 26.7 (21.0-32.0) mmol/L BUN 8 (7.0-18.0) mg/dL Creatinine 0.7 (0.6-1.0) mg/dL Est Cr Clr Drug Dosing 115.32 mL/min Estimated GFR (MDRD) > 60.0 ml/min Glucose 92 (74-106) mg/dL Uric Acid 5.2 (2.6-7.2) mg/dL Calcium 7.6 L (8.5-10.1) mg/dL Magnesium 5.1 H (1.8-2.4) mg/dL Total Bilirubin 0.2 (0.2-1.0) mg/dL AST 14 L (15-37) IU/L ALT 29 (14-63) IU/L Alkaline Phosphatase 86 (46-116) U/L Total Protein 6.7 (6.4-8.2) g/dL Albumin 2.9 L (3.4-5.0) g/dL Globulin 3.8 (2.6-4.0) g/dL Albumin/Globulin Ratio 0.8 L (0.9-1.6) SARS-CoV-2 RNA (BERNARDO) (NEGATIVE) Med Orders - Current: Current Medications Acetaminophen (Tylenol) 650 mg PO Q6H PRN PRN Reason: Headache/Pain Last Admin: 01/30/20 05:30 Dose: 650 mg Documented by: Calcium Gluconate (Calcium Gluconate) 1 gm IV ASDIRECTED PRN PRN Reason: respiratory distress Magnesium Sulfate (Magnesium Sulfate In Water Premix) 20 gm in 500 mls @ 50 mls/hr IV ASDIRECTED SHONNA; Protocol Last Admin: 01/30/20 03:35 Dose: 2 gm/hr, 50 mls/hr Documented by: Sodium Chloride (Normal Saline) 1,000 mls @ 5 mls/hr IV ASDIRECTED SHONNA Last Admin: 01/29/20 17:28 Dose: 5 mls/hr Documented by: Ibuprofen (Motrin) 600 mg PO Q6H PRN PRN Reason: Headache Labetalol HCl (Normodyne) 300 mg PO BID SHONNA Sodium Chloride (Saline Flush) 10 ml FLUSH ASDIRECTED PRN PRN Reason: Keep Vein Open Sodium Chloride (Saline Flush) 2.5 ml FLUSH ASDIRECTED PRN PRN Reason: Keep Vein Open Sodium Chloride (Normal Saline) 10 ml IV ASDIRECTED PRN PRN Reason: IV Use Discontinued Medications Magnesium Sulfate 4 gm/ Premix 100 mls @ 300 mls/hr IV BOLUS ONE Stop: 01/29/20 16:00 Last Admin: 01/29/20 17:27 Dose: 300 mls/hr Documented by: Labetalol HCl (Normodyne) 20 mg IVPUSH Q10M PRN; Protocol PRN Reason: Hypertension Last Admin: 01/29/20 17:23 Dose: 20 mg Documented by: Labetalol HCl (Normodyne) 40 mg IVPUSH ONETIME ONE; Protocol Stop: 01/29/20 17:47 Last Admin: 01/29/20 17:51 Dose: 40 mg Documented by: Labetalol HCl (Normodyne) 200 mg PO BID SHONNA Last Admin: 01/29/20 20:43 Dose: 200 mg Documented by: Labetalol HCl (Normodyne) 20 mg IVPUSH ONETIME ONE; Protocol Stop: 01/29/20 23:09 Last Admin: 01/29/20 23:23 Dose: 20 mg Documented by: Labetalol HCl (Normodyne) 100 mg PO BID REPLACED BY [facility] Labetalol HCl (Normodyne) 100 mg PO ONETIME ONE Stop: 01/30/20 05:56 Last Admin: 01/30/20 06:16 Dose: 100 mg Documented by: - Exam General: Alert, Oriented, Cooperative, No Acute Distress Neck: Supple, Trachea Midline Lungs: Clear to Auscultation Cardiovascular: Regular Rate, Regular Rhythm, No Murmurs GI/Abdominal Exam: Soft, Non-Tender, No Distention Back Exam: Normal Inspection Extremities: Normal Inspection, Normal Range of Motion, Non-Tender, No Pedal Edema Skin: Warm, Dry, Intact Neurological: No New Focal Deficit, Reflexes Equal Bilateral, Other (Reflex 2+ B/l LE) Psy/Mental Status: Alert, Normal Affect, Normal Mood Sepsis Event Note - Evaluation Sepsis Screening Result: No Definite Risk - Focused Exam Vital Signs: Vital Signs Temp Pulse Pulse Resp BP BP Pulse Ox 01/30/20 07:35 36.8 C 100 15 144/88 H 96 01/30/20 06:30 89 16 135/86 97 01/30/20 06:16 93 146/93 H 01/30/20 03:30 36.4 C 94 16 142/89 H 97 01/30/20 01:30 137/78 01/29/20 23:30 36.1 C 97 16 156/93 H 97 01/29/20 20:43 91 154/85 H - Problem List Review Problem List Initiated/Reviewed/Updated: Yes - My Orders Last 24 Hours: My Active Orders 01/29/20 15:41 Patient Status [ADT] Routine Bedrest [RC] ASDIRECTED Communication Order [RC] PRN Communication Order [RC] PRN Equipment to Bedside [RC] PRN Height and Weight [RC] DAILY Intake and Output [RC] QSHIFT Notify Provider Status Change [RC] ASDIRECTED Notify Provider [RC] PRN Oxygen Therapy [RC] PRN Vital Signs [RC] ASDIRECTED Calcium Gluconate 1 gm IV ASDIRECTED PRN Sodium Chloride 0.9% [Normal Saline] 10 ml IV ASDIRECTED PRN Sodium Chloride 0.9% [Saline Flush] 10 ml FLUSH ASDIRECTED PRN Sodium Chloride 0.9% [Saline Flush] 2.5 ml FLUSH ASDIRECTED PRN Electronic Heart Tones Ext w TOCO [WOMSER] Per Unit Routine Peripheral IV Insertion Adult [OM.PC] Routine 01/29/20 15:45 Magnesium Sulfate/Water [Magnesium Sulfate in Water Premix] 20 gm in 500 ml IV ASDIRECTED Deep Tendon Reflexes [WOMSER] Q1H 01/29/20 Dinner Clear Liquid Diet [DIET] 01/29/20 16:45 Deep Tendon Reflexes [WOMSER] Q1H 01/29/20 17:30 Sodium Chloride 0.9% [Normal Saline] 1,000 ml IV ASDIRECTED 01/29/20 17:45 Deep Tendon Reflexes [WOMSER] Q1H 01/29/20 18:45 Deep Tendon Reflexes [WOMSER] Q1H 01/29/20 19:45 Deep Tendon Reflexes [WOMSER] Q1H 01/29/20 20:45 Deep Tendon Reflexes [WOMSER] Q1H 01/29/20 21:45 Deep Tendon Reflexes [WOMSER] Q1H 01/29/20 22:45 Deep Tendon Reflexes [WOMSER] Q1H 01/29/20 23:45 Deep Tendon Reflexes [WOMSER] Q1H 01/30/20 00:45 Deep Tendon Reflexes [WOMSER] Q1H 01/30/20 01:45 Deep Tendon Reflexes [WOMSER] Q1H 01/30/20 02:45 Deep Tendon Reflexes [WOMSER] Q1H 01/30/20 03:45 Deep Tendon Reflexes [WOMSER] Q1 01/30/20 04:45 Deep Tendon Reflexes [WOMSER] Q1 01/30/20 05:45 Deep Tendon Reflexes [WOMSER] Q1 01/30/20 06:45 Deep Tendon Reflexes [WOMSER] Q1 01/30/20 07:45 Deep Tendon Reflexes [WOMSER] [facility] 01/30/20 08:21 Ibuprofen [Motrin] 600 mg PO Q6H PRN 01/30/20 08:45 Deep Tendon Reflexes [WOMSER] Q1 01/30/20 09:45 Deep Tendon Reflexes [WOMSER] [facility] 01/30/20 10:00 MAGNESIUM [CHEM] Q6 01/30/20 10:45 Deep Tendon Reflexes [WOMSER] [facility] 01/30/20 11:45 Deep Tendon Reflexes [WOMSER] [facility] 01/30/20 12:45 Deep Tendon Reflexes [WOMSER] [facility] 01/30/20 13:45 Deep Tendon Reflexes [WOMSER] [facility] 01/30/20 14:45 Deep Tendon Reflexes [WOMSER] [facility] 01/30/20 16:00 MAGNESIUM [CHEM] Q6H 01/30/20 22:00 MAGNESIUM [CHEM] Q6H 01/31/20 04:00 MAGNESIUM [CHEM] Q6H 01/31/20 10:00 MAGNESIUM [CHEM] Q6H - Assessment Assessment:: 29yo POD6 s/p RLTCS with preeclampsia. Symptoms and BP improving with Mag. - Plan Plan:: - BP 140s/80s with labetalol 300mg BID, will continue Mag for 24hr then monitor BPs - good UO, normal labs this AM - motrin for headache Plan for discharge home tomorrow if clinically stable
[2020-01-30] MEDS: Ibuprofen 600 MG Tab PO PRN ×2 (08:56→15:48)
[2020-01-30] MEDS: Labetalol 100 MG Tab PO SCH ×2 (08:57→20:41)
[2020-01-30] MEDS ORDERED: Labetalol 100 MG Tab PO SCH (09:00)
--- NOTE | 2020-01-31 08:48 | PCM.DCSUM1 ---
Discharge Summary - Hospital Course Free Text/Narrative:: 29yo POD7 s/p repeat presented with headaches, spots on her vision, nausea and elevated BPs 150-160/100-110 at home. She receive IV labetalol x 3 doses and Magnesium sulfate for seizure prophylaxis for 24 hours. BP has been stable with labetalol 300mg BID PO. She is feeling better, headaches have resolved. Given precautions for discharge, continue to check BP daily, and call if worsening BP or symptoms. Follow up in clinic in 1 week. - Discharge Data Discharge Date: 01/31/20 Discharge Disposition: Home, Self-Care 01 Condition: Good - Referral to Home Health Primary Care Physician: PCP None - Patient Instructions Diet: Low Sodium Activity: No Lifting Over 10 Pounds Driving: May Drive Today Showering/Bathing: May Shower Other/Special Instructions: Check BP daily, call if greater than 150/100 or symptoms of persistent headache, change in vision, chest pain, shortness of breath, upper abdominal pain or increased swelling. - Discharge Plan *PRESCRIPTION DRUG MONITORING PROGRAM REVIEWED*: Not Applicable *COPY OF PRESCRIPTION DRUG MONITORING REPORT IN PATIENT FCO: Not Applicable Prescriptions/Med Rec: RX: Labetalol [Normodyne] 300 mg PO BID #60 tablet Home Medications: Home Meds RX: Cetirizine [ZyrTEC] 1 tab PO DAILY 01/20/20 [History] RX: Pnv No.95/Ferrous Fum/Folic AC [ Vitamin Tablet] 1 tab PO DAILY 01/20/20 [History] RX: Acetaminophen/oxyCODONE [Percocet 325-5 MG] 1 tab PO Q4H PRN #20 tablet 01/25/20 [Rx] RX: Ibuprofen [Motrin] 800 mg PO Q8H PRN #20 tablet 01/25/20 [Rx] RX: Labetalol [Normodyne] 300 mg PO BID #60 tablet 01/31/20 [Rx] Referrals: [facility] [Outside] Vivek Basurto MD [Physician] - - Discharge Summary/Plan Comment DC Time >30 min.: No - Patient Data Vitals - Most Recent: Last Vital Signs Temp 36.1 C 01/31/20 08:10 Pulse 90 01/31/20 08:10 Resp 18 01/31/20 08:10 BP 146/92 H 01/31/20 08:10 Pulse Ox 97 01/31/20 08:10 Weight - Most Recent: 209 lb I&O - Last 24 hours: Intake & Output 01/30/20 01/31/20 01/31/20 22:59 06:59 14:59 Output Total 1200 Balance -1200 Lab Results - Last 24 hrs: Laboratory Results - last 24 hr 01/30/20 01/30/20 Range/Units 10:05 16:16 Magnesium 5.7 H 6.1 H (1.8-2.4) mg/dL Med Orders - Current: Current Medications Acetaminophen (Tylenol) 650 mg PO Q6H PRN PRN Reason: Headache/Pain Last Admin: 01/30/20 20:45 Dose: 650 mg Documented by: Calcium Gluconate (Calcium Gluconate) 1 gm IV ASDIRECTED PRN PRN Reason: respiratory distress Magnesium Sulfate (Magnesium Sulfate In Water Premix) 20 gm in 500 mls @ 50 mls/hr IV ASDIRECTED SHONNA; Protocol Last Admin: 01/30/20 13:39 Dose: 2 gm/hr, 50 mls/hr Documented by: Sodium Chloride (Normal Saline) 1,000 mls @ 5 mls/hr IV ASDIRECTED SHONNA Last Admin: 01/29/20 17:28 Dose: 5 mls/hr Documented by: Ibuprofen (Motrin) 600 mg PO Q6H PRN PRN Reason: Headache Last Admin: 01/30/20 15:48 Dose: 600 mg Documented by: Labetalol HCl (Normodyne) 300 mg PO BID SHONNA Last Admin: 01/30/20 20:41 Dose: 300 mg Documented by: Sodium Chloride (Saline Flush) 10 ml FLUSH ASDIRECTED PRN PRN Reason: Keep Vein Open Sodium Chloride (Saline Flush) 2.5 ml FLUSH ASDIRECTED PRN PRN Reason: Keep Vein Open Sodium Chloride (Normal Saline) 10 ml IV ASDIRECTED PRN PRN Reason: IV Use Discontinued Medications Magnesium Sulfate 4 gm/ Premix 100 mls @ 300 mls/hr IV BOLUS ONE Stop: 01/29/20 16:00 Last Admin: 01/29/20 17:27 Dose: 300 mls/hr Documented by: Labetalol HCl (Normodyne) 20 mg IVPUSH Q10M PRN; Protocol PRN Reason: Hypertension Last Admin: 01/29/20 17:23 Dose: 20 mg Documented by: Labetalol HCl (Normodyne) 40 mg IVPUSH ONETIME ONE; Protocol Stop: 01/29/20 17:47 Last Admin: 01/29/20 17:51 Dose: 40 mg Documented by: Labetalol HCl (Normodyne) 200 mg PO BID SHONNA Last Admin: 01/29/20 20:43 Dose: 200 mg Documented by: Labetalol HCl (Normodyne) 20 mg IVPUSH ONETIME ONE; Protocol Stop: 01/29/20 23:09 Last Admin: 01/29/20 23:23 Dose: 20 mg Documented by: Labetalol HCl (Normodyne) 100 mg PO BID [facility] Labetalol HCl (Normodyne) 100 mg PO ONETIME ONE Stop: 01/30/20 05:56 Last Admin: 01/30/20 06:16 Dose: 100 mg Documented by:
[2020-01-31] MEDS: Labetalol 100 MG Tab PO SCH (09:10)
== END 2020-01-31 09:33 | disposition home or self-care (01) ==
LOC: MW.OB 15:18
PROVIDERS: ADMIT Obstetrics & Gynecology; ATTEND Obstetrics & Gynecology
DX: O13.5 Gestational [pregnancy-induced] hypertension without significant proteinuria, complicating the puerperium (principal); Z79.899 Other long term (current) drug therapy; Z98.890 Other specified postprocedural states; Z20.828 Contact with and (suspected) exposure to other viral communicable diseases
CPT/HCPCS: 36415; 80053; 83735; 84550; 85027; 87635; A9270; J3475; J3490; J7030; 96365; 96366; 96375; 96376; G0378; U0002